=== PATIENT | male | born 1965 | race Caucasian/White ===

== ENCOUNTER 2017-05-26 22:04 | Emergency (ER) | END 2017-05-27 03:23 | disposition home or self-care (01) ==

== ENCOUNTER 2017-05-29 02:18 | Emergency (ER) | END 2017-05-29 08:58 | disposition home or self-care (01) ==

== ENCOUNTER 2017-06-29 12:20 | Emergency (ER) | END 2017-06-29 16:41 | disposition home or self-care (01) ==

== ENCOUNTER 2017-07-01 12:15 | Emergency (ER) | END 2017-07-01 13:19 | disposition left against medical advice (07) ==

== ENCOUNTER 2017-08-17 19:27 | Emergency (ER) | END 2017-08-18 00:41 | disposition home or self-care (01) ==

== ENCOUNTER 2017-09-16 01:59 | Emergency (ER) | END 2017-09-16 05:07 | disposition home or self-care (01) ==

== ENCOUNTER 2017-09-23 04:45 | Emergency (ER) | END 2017-09-23 16:33 | disposition home or self-care (01) ==

== ENCOUNTER 2017-10-21 10:54 | Emergency (ER) | END 2017-10-21 14:36 | disposition home or self-care (01) ==

== ENCOUNTER 2017-10-27 22:39 | Inpatient (IN) | END 2017-11-11 18:40 | disposition home or self-care (01) | DRG 166 ==

== ENCOUNTER 2017-12-01 07:12 | Emergency (ER) | END 2017-12-01 10:40 | disposition home or self-care (01) ==

== ENCOUNTER 2017-12-14 15:53 | Inpatient (IN) | END 2017-12-20 17:20 | disposition home health service (06) | DRG 948 ==